=== PATIENT | male | born 1945 | race Caucasian/White ===

== ENCOUNTER 2016-03-31 10:51 | Outpatient (RCR) | payer MEDICARE, OTHER | END 2016-04-18 08:00 | disposition home or self-care (01) | LOC: PT 10:51 | DX: M70.71 Other bursitis of hip, right hip (principal) ==

== ENCOUNTER → 2016-06-23 | Outpatient (CLI) | payer MEDICARE, OTHER | LOC: LAB 11:25 | DX: Z12.5 Encounter for screening for malignant neoplasm of prostate (principal); E78.00 Pure hypercholesterolemia, unspecified ==

== ENCOUNTER → 2017-07-09 | Outpatient (CLI) | payer MEDICARE, OTHER ==
[2017-07-09 09:55] LABS: ALBUMIN 4.3 g/dL (3.5-5.0); BUN/CREATININE RATIO 21.8 (6.0-26.0); CALCIUM 9.1 mg/dL (8.4-10.2); TOTAL BILIRUBIN 0.7 mg/dL (0.2-1.3); TOTAL PROTEIN 7.9 g/dL (6.3-8.2)
== END ==
LOC: LAB 09:25
PROVIDERS: Family Medicine
DX: Z00.00 Encounter for general adult medical examination without abnormal findings (principal); Z12.5 Encounter for screening for malignant neoplasm of prostate; E78.00 Pure hypercholesterolemia, unspecified; J30.9 Allergic rhinitis, unspecified; Z23 Encounter for immunization

== ENCOUNTER → 2017-08-02 | Outpatient (CLI) | payer MEDICARE, OTHER | LOC: LAB 13:54 | DX: Z01.89 Encounter for other specified special examinations (principal) ==

== ENCOUNTER → 2017-09-21 | Outpatient (CLI) | payer MEDICARE, OTHER ==
[2017-09-21 09:54] LABS: BUN/CREATININE RATIO 17.3 (6.0-26.0); POTASSIUM 4.5 mmol/L (3.6-5.0)
== END ==
LOC: LAB 09:13
PROVIDERS: Internal Medicine Cardiovascular Disease
DX: Q99.9 Chromosomal abnormality, unspecified (principal)

== ENCOUNTER → 2018-07-07 | Outpatient (CLI) | payer MEDICARE, OTHER ==
[2018-07-07 09:48] LABS: ALBUMIN 4.5 g/dL (3.5-5.0); CALCIUM 9.3 mg/dL (8.4-10.2); POTASSIUM 4.5 mmol/L (3.6-5.0); TOTAL BILIRUBIN 0.7 mg/dL (0.2-1.3); TOTAL PROTEIN 7.6 g/dL (6.3-8.2)
== END ==
LOC: LAB 09:10
PROVIDERS: Family Medicine
DX: Z00.00 Encounter for general adult medical examination without abnormal findings (principal); Z12.5 Encounter for screening for malignant neoplasm of prostate; J30.9 Allergic rhinitis, unspecified; E78.00 Pure hypercholesterolemia, unspecified

== ENCOUNTER → 2018-11-16 | Outpatient (CLI) | payer MEDICARE, OTHER ==
[2018-10-24 11:19] VITALS: BP 140/88
[~2018-11-16] MED LIST: ALEVE220 M1 PO; ASPIRIN 32325 MG/TAB PO; SIMVASTATIN40 M1 PO; TOPROL XL 25MG25 MG PO; ZOCOR10 M1 PO
== END ==
LOC: RAD 09:41
DX: I67.82 Cerebral ischemia (principal); M48.02 Spinal stenosis, cervical region; M47.812 Spondylosis without myelopathy or radiculopathy, cervical region; G62.9 Polyneuropathy, unspecified; R20.0 Anesthesia of skin
CPT/HCPCS: A9585

== ENCOUNTER → 2018-11-17 | Outpatient (CLI) | payer MEDICARE, OTHER ==
[2018-10-24 11:19] VITALS: BP 140/88
== END ==
LOC: RAD 18:12
DX: M48.07 Spinal stenosis, lumbosacral region (principal); M48.061 Spinal stenosis, lumbar region without neurogenic claudication; M48.04 Spinal stenosis, thoracic region; R20.2 Paresthesia of skin

== ENCOUNTER → 2019-07-10 | Outpatient (CLI) | payer MEDICARE, OTHER ==
[2018-10-24 11:19] VITALS: BP 140/88
== END ==
LOC: RAD 08:20
DX: S92.422A Displaced fracture of distal phalanx of left great toe, initial encounter for closed fracture (principal)

== ENCOUNTER → 2019-10-26 | Outpatient (CLI) | payer MEDICARE, OTHER ==
[2018-10-24 11:19] VITALS: BP 140/88
[2019-10-26 09:27] LABS: ALBUMIN 4.3 g/dL (3.4-4.8); POTASSIUM 4.8 mmol/L (3.5-5.1)
[2019-10-26 09:28] LABS: CALCIUM 9.2 mg/dL (8.3-10.5)
[2019-10-26 09:29] LABS: TOTAL PROTEIN 7.6 g/dL (6.2-8.1)
[2019-10-26 09:31] LABS: TOTAL BILIRUBIN 0.6 mg/dL (0.2-1.2)
== END ==
LOC: LAB 08:58
PROVIDERS: Family Medicine
DX: Z12.5 Encounter for screening for malignant neoplasm of prostate (principal); E78.00 Pure hypercholesterolemia, unspecified

== ENCOUNTER → 2020-11-18 | Outpatient (CLI) | payer MEDICARE, OTHER ==
[2020-11-18 14:44] LABS: ALBUMIN 4.1 g/dL (3.4-4.8); POTASSIUM 4.2 mmol/L (3.5-5.1)
[2020-11-18 14:45] LABS: CALCIUM 9.4 mg/dL (8.3-10.5)
[2020-11-18 14:46] LABS: TOTAL PROTEIN 7.2 g/dL (6.2-8.1)
[2020-11-18 14:48] LABS: TOTAL BILIRUBIN 0.7 mg/dL (0.2-1.2)
== END ==
LOC: LAB 14:19
PROVIDERS: Family Medicine
DX: E78.00 Pure hypercholesterolemia, unspecified (principal)

== ENCOUNTER → 2020-12-09 | Outpatient (CLI) | payer MEDICARE, OTHER ==
[2020-12-09 11:39] LABS: POTASSIUM 4.3 mmol/L (3.5-5.1)
[2020-12-09 11:40] LABS: CALCIUM 9.6 mg/dL (8.3-10.5)
== END ==
LOC: LAB 11:11
PROVIDERS: Family Medicine
DX: Z00.00 Encounter for general adult medical examination without abnormal findings (principal)

== ENCOUNTER → 2021-12-03 | Outpatient (CLI) | payer MEDICARE, OTHER ==
[2021-12-03 10:56] LABS: ALBUMIN 4.2 g/dL (3.4-4.8)
[2021-12-03 11:01] LABS: TOTAL BILIRUBIN 0.6 mg/dL (0.2-1.2)
[2021-12-03 11:04] LABS: DIRECT BILIRUBIN 0.3 mg/dL (0.0-0.5)
== END ==
LOC: LAB 10:30
PROVIDERS: Family Medicine
DX: E78.00 Pure hypercholesterolemia, unspecified (principal)

== ENCOUNTER → 2021-12-10 | Outpatient (CLI) | payer MEDICARE, OTHER | LOC: RAD 09:59 | DX: M13.842 Other specified arthritis, left hand (principal) ==

== ENCOUNTER → 2022-01-22 | Outpatient (CLI) | payer MEDICARE, OTHER ==
[~2022-01-22] MED LIST changes: +MEDROL 4MG DOSPA4 MG PO; +PERCOCET 325 MG1 TA2 PO; +ROXICODONE 55 MG/TAB PO; +TRAMADOL 50 MG TAB PO
== END ==
LOC: RAD 09:31
DX: M70.61 Trochanteric bursitis, right hip (principal)

== ENCOUNTER 2022-02-10 09:00 | Outpatient (RCR) | payer MEDICARE, OTHER | END 2022-02-18 | disposition home or self-care (01) | LOC: PT | DX: M54.51 Vertebrogenic low back pain (principal) ==

== ENCOUNTER → 2022-04-09 | Outpatient (CLI) | payer MEDICARE, OTHER ==
[2022-04-09 16:36] LABS: HEMATOCRIT 43.3 % (42.0-52.0); MEAN PLATELET VOLUME 8.9 fl (7.4-10.4); RED BLOOD COUNT 4.47 M/mm3 (4.20-5.60); RED CELL DISTRIBUTION WIDTH 13.7 % (11.5-14.5); WHITE BLOOD COUNT 5.9 K/mm3 (4.8-10.8)
[2022-04-09 16:39] LABS: ALBUMIN 4.1 g/dL (3.4-4.8); POTASSIUM 3.9 mmol/L (3.5-5.1)
[2022-04-09 16:41] LABS: CALCIUM 9.2 mg/dL (8.3-10.5)
[2022-04-09 16:42] LABS: TOTAL PROTEIN 7.1 g/dL (6.2-8.1)
[2022-04-09 16:44] LABS: TOTAL BILIRUBIN 0.3 mg/dL (0.2-1.2)
[2022-04-09 17:08] LABS: PROTHROMBIN TIME 10.2 SECONDS (9.0-12.0)
[2022-04-09 17:21] LABS: URINE APPEARANCE CLEAR; URINE COLOR YELLOW
[2022-04-09 17:22] LABS: URINE BILIRUBIN NEGATIVE (NEGATIVE); URINE BLOOD TRACE (NEGATIVE); URINE GLUCOSE NEGATIVE (NEGATIVE); URINE KETONE NEGATIVE (NEGATIVE); URINE LEUKOCYTE ESTERASE NEGATIVE (NEGATIVE); URINE MUCUS PRESENT (NOT PRESENT); URINE NITRATE NEGATIVE (NEGATIVE); URINE PROTEIN(semi-quant) NEGATIVE (NEGATIVE); URINE UROBILINOGEN NORMAL (NORMAL); URINE WBC 0-1 /hpf (0-3)
== END ==
LOC: LAB 15:59
PROVIDERS: Family Medicine
DX: Z01.810 Encounter for preprocedural cardiovascular examination (principal); M48.062 Spinal stenosis, lumbar region with neurogenic claudication

== ENCOUNTER → 2022-04-10 | Outpatient (CLI) | payer MEDICARE, OTHER | LOC: AMSURD 08:24 → RAD 08:24 | DX: R94.31 Abnormal electrocardiogram [ECG] [EKG] (principal) ==

== ENCOUNTER → 2023-01-01 | Outpatient (CLI) | payer MEDICARE, OTHER | LOC: LAB 09:24 | DX: Z00.00 Encounter for general adult medical examination without abnormal findings (principal); I20.81 Angina pectoris with coronary microvascular dysfunction; E78.00 Pure hypercholesterolemia, unspecified; M79.2 Neuralgia and neuritis, unspecified; M25.562 Pain in left knee ==

== ENCOUNTER → 2023-04-12 | Outpatient (CLI) | payer MEDICARE, OTHER | LOC: RAD 10:24 | DX: M47.812 Spondylosis without myelopathy or radiculopathy, cervical region (principal); M50.320 Other cervical disc degeneration, mid-cervical region, unspecified level ==

== ENCOUNTER → 2023-04-13 | Outpatient (CLI) | payer MEDICARE, OTHER | LOC: RAD 09:23 | DX: M47.812 Spondylosis without myelopathy or radiculopathy, cervical region (principal); M48.02 Spinal stenosis, cervical region; M50.320 Other cervical disc degeneration, mid-cervical region, unspecified level ==

== ENCOUNTER 2023-04-14 08:59 | Outpatient (RCR) | payer MEDICARE, OTHER | END 2023-04-21 | disposition home or self-care (01) | LOC: PT | DX: M50.320 Other cervical disc degeneration, mid-cervical region, unspecified level (principal) ==

== ENCOUNTER 2023-04-22 07:58 | Outpatient (RCR) | payer MEDICARE, OTHER | END 2023-05-20 | disposition home or self-care (01) | LOC: PT | DX: M50.320 Other cervical disc degeneration, mid-cervical region, unspecified level (principal) ==

== ENCOUNTER → 2023-08-24 | Day surgery (SDC) | payer MEDICARE, OTHER ==
[~2023-08-24] MED LIST changes: +Iohexol 300 - 10 ML VIAL IV ONE; +Lidocaine PF 2% (20 MG/ML) 2 ML VIAL IJ ONE
== END ==
LOC: MSO 13:14
DX: M48.061 Spinal stenosis, lumbar region without neurogenic claudication (principal); M54.17 Radiculopathy, lumbosacral region
CPT/HCPCS: J1100; Q9967

== ENCOUNTER → 2024-07-07 | Outpatient (CLI) | payer MEDICARE, OTHER ==
[~2024-07-07] MED LIST changes: -Iohexol 300 - 10 ML VIAL IV ONE; -Lidocaine PF 2% (20 MG/ML) 2 ML VIAL IJ ONE
== END ==
LOC: LAB 11:12
DX: E78.00 Pure hypercholesterolemia, unspecified (principal)